=== PATIENT | male | born 1985 | race Caucasian/White ===

== ENCOUNTER 2020-04-15 12:26 | Emergency (ER) | payer OTHER ==
[~2020-04-15] VITALS: Ht 172.7 cm; Wt 86.2 kg
[2020-04-15] MEDS ORDERED: LIDOCAINE HCL 2% LOCAL 20 ML VIAL INJ ONE (13:30)
[2020-04-15] MEDS ORDERED: TETANUS/DIPHTHERIA TOX ADULT 0.5 ML SYR IM ONE (13:30)
--- NOTE | 2020-04-15 13:45 | Emergency Department Note ---
History of Present Illnes History of Present Illness Chief Complaint: Laceration History of Present Illness This is a 34 year old male .c/o laceration r hand here for laceration to right hand palmar aspect while at work, misstep and extended hand to steady himself and cut his hand on unknown object on railcar. 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 Any updates have been documented here. (EVE LANDIN NP) Past Medical History Recent Fever: No Clinical Suspicion of Infectio: No New/Unexplained Change in Ment: No Past Medical History: None Past Surgical History: Appendectomy (EVE LANDIN NP) Social History Smoking Cessation: Never Smoker Alcohol Use: None Any Illegal Drug Use: No TB Exposure/Symptoms: No (EVE LANDIN NP) Family History Family history of heart diseas: No (EVE LANDIN NP) Other Any Pre-Existing Lines (PICC,: No (EVE LANDIN NP) Review of Systems Review of Systems Constitutional: no symptoms; as per HPI, chills, diaphoresis, fever, malaise, weakness, other EENTM: no symptoms; as per HPI, eye pain, blurred vision, tearing, double vision, ear pain, ear discharge, nose pain, nose congestion, throat pain, throat swelling, mouth pain, mouth swelling, other Cardiovascular: no symptoms; as per HPI, chest pain, edema, palpitations, syncope, other Respiratory: no symptoms; as per HPI, change in phlegm color, chest congestion, cough, hemoptysis, excessive phlegm production, pain on inspiration, pain with cough, dyspnea, dyspnea on exertion, snoring, stridor, wheezing, other Gastrointestinal: no symptoms; as per HPI, abdominal pain, constipation, diarrhea, nausea, vomiting, other Genitourinary: no symptoms; as per HPI, discharge, dysuria, frequency, hematuria, pain, other Musculoskeletal: no symptoms, other (c/o laceration right hand no active bleeding ); as per HPI, back pain, gout, joint pain, joint swelling, muscle pain, muscle stiffness, neck pain Neurological: no symptoms; as per HPI, headache, numbness, paresthesia, pre-existing deficit, seizure, tingling, tremors, weakness, other Psychological: no symptoms; as per HPI, anxiety, depressed, emotional problems, other Endocrine: no symptoms; as per HPI, excessive sweating, flushing, intolerance to cold, intolerance to heat, increased hunger, increased thirst, increased urination, unexplained weight gain, unexplained weight loss, other Hematological/Lymphatic: no symptoms; as per HPI, anemia, blood clots, easy bleeding, easy bruising, swollen glands, other Review of other systems All other systems reviewed and negative. (EVE LANDIN NP) Physical Exam Related Data Allergies: Coded Allergies: minocycline (Verified Allergy, Severe, 04/15/20) Triage Vital Signs Vital Signs Date Time Temp Pulse Resp B/P (MAP) Pulse Ox O2 Delivery O2 Flow Rate FiO2 04/15/20 13:19 98.0 80 16 137/92 98 Vital signs reviewed: Yes (EVE LANDIN NP) Physical Exam CONSTITUTIONAL Constitutional: well-developed, well-nourished HENT HENT: normocephalic, atraumatic, oropharynx clear/moist, nose normal HENT L/R: left ext ear normal, right ext ear normal EYES Eyes: PERRL, conjunctivae normal NECK Neck: ROM normal PULMONARY Pulmonary: effort normal, breath sounds normal CARDIOVASCULAR Cardiovascular: regular rhythm, heart sounds normal, capillary refill normal, normal rate GASTROINTESTINAL Abdominal: soft, nontender, bowel sounds normal GENITOURINARY Genitourinary: exam deferred SKIN Skin: other (c/o 5cm laceration to right hand no activ ebleeding no distal neuro deficits no limited rom lac to palm ) MUSCULOSKELETAL Musculoskeletal: ROM normal NEUROLOGICAL Neurological: alert, oriented x 3, no gross motor or sensory deficits PSYCHOLOGICAL Psychological: mood/affect normal, judgement normal (EVE LANDIN NP) Procedures Laceration Laceration: Laceration 1 Site: hand (right hand) Side: right Description: linear Depth: simple, single layer Local anesthesia: lidocaine 1% Amount of anesthesia (mL): 5 Pre-repair: wound exposed, irrigated extensively Skin layer closed with: nylon Size (cm): 4-0 Number of sutures: 11 Technique: simple, interrupted Additional comments pt tonia well - tet tox given (EVE LANDIN NP) Critical Care Time Subsequent provider I assumed direction of critical care for this patient from another provider of my specialty. (EVE LANDIN NP) Assessment & Plan Reassessment Reassessment time: 13:30 Reassessment 34y m presented to ed c/o lacertion right hand - 5cm no active bleeding no limited rom no distail neuro deficits - Dr Yoon in eval pt status - rad ordered pt medicated w/ tet tox (EVE LANDIN NP) Assessment & Plan Final Impression: (1) Laceration of right hand Assessment & Plan discussed rad results plan of care and wound care instructions and f/u i nstructions 1. keep wound clean and dry 2. sutures out in 5-7 days 3. tylenol and motrin as needed 4. return to ed as needed 5. follow up wiht plastics doctor in 1-2 days without fail 6. keflex t#3 (EVE LANDIN NP) Last Vital Signs Date Time Temp Pulse Resp B/P (MAP) Pulse Ox O2 Delivery O2 Flow Rate FiO2 04/15/20 13:19 98.0 80 16 137/92 98 (EVE LANDIN NP) Medications in the ED Tetanus/ Diphtheria Toxoids 0.5 ml ONCE ONCE IM ; Start 04/15/20 at 13:30; Stop 04/15/20 at 13:31 Lidocaine HCl ONCE ONCE INJ ; Start 04/15/20 at 13:30; Stop 04/15/20 at 13:31; Status UNV (EVE LANDIN NP) Physician Attestation Provider Attestation Pt seen and examined with fnp, pt presents for laceration to right hand Exam as follows - superficial 5 cm lac to palmar surface, n/v intact I agree with fnp assessment and disposition. (JESSI YOON MD) EVE LANDIN NP April 15, 2020 13:45 JESSI YOON MD April 15, 2020 15:17
[2020-04-15 15:15] VITALS: BP 130/71
== END 2020-04-15 15:16 | disposition home or self-care (01) ==
LOC: ER 12:26
DX: S61.411A Laceration without foreign body of right hand, initial encounter (principal); W26.9XXA Contact with unspecified sharp object(s), initial encounter; Y99.0 Civilian activity done for income or pay
CPT/HCPCS: 12002; 90471; 90714; 99282; J2001